=== PATIENT | male | born 1935 ===

== ENCOUNTER 2023-02-09 05:55 | Inpatient (IN) | payer OTHER | END 2023-02-10 12:40 | disposition home or self-care (01) | DRG 376 | LOC: CIR.AMB 05:55 → O/R 14:01 | PROVIDERS: ADMIT Surgery; ATTEND Surgery | PROC: 05H633Z Insertion of Infusion Device into Left Subclavian Vein, Percutaneous Approach (ICD-10-PCS; principal; 2023-02-09 10:30) | DX: C20 Malignant neoplasm of rectum (principal); Z20.822 Contact with and (suspected) exposure to COVID-19 | CPT/HCPCS: 36561; C1751 ==